=== PATIENT | male | born 2000 | race Two or more races ===

== ENCOUNTER 2021-06-26 04:12 | Emergency (ER) | payer OTHER ==
[~2021-06-26] VITALS: Ht 177.8 cm; Wt 72.0 kg
[2021-06-26 05:06] LABS: APPEARANCE,URINE CLEAR (CLEAR); BILIRUBIN,URINE NEGATIVE (NEGATIVE); GLUCOSE, URINE (UA) NEGATIVE (NEGATIVE); KETONES,URINE NEGATIVE (NEGATIVE); LEUKOCYTE ESTERASE ,URINE MODERATE (NEGATIVE); NITRATE,URINE NEGATIVE (NEGATIVE); OCCULT BLOOD,URINE TRACE (NEGATIVE); PROTEIN,URINE NEGATIVE (NEGATIVE); UROBILINOGEN,URINE 0.2 mg/dL (<=1.0)
[2021-06-26 05:25] LABS: BACTERIA,URINE Few /HPF (None Seen); RBC,URINE 0-2 /HPF (0-2); WBC,URINE 0-2 /HPF (0-5)
[2021-06-26] MEDS ORDERED: DOXYCYCLINE HYCLATE 100 MG TABLET PO ONE (06:15)
[2021-06-26] MEDS ORDERED: CefTRIAXone SODIUM 1 GM/VIAL IM ONE (06:15)
[2021-06-26] MEDS ORDERED: ACETAMINOPHEN 500 MG TABLET PO ONE (06:15)
[2021-06-26] MEDS ORDERED: LIDOCAINE/PF 1% 2 ML VIAL IM ONE (06:15)
[2021-06-26 06:31] VITALS: BP 138/86
== END 2021-06-26 06:45 | disposition home or self-care (01) ==
LOC: EMS 04:14
DX: R36.9 Urethral discharge, unspecified (principal)
CPT/HCPCS: 81001; 87491; 87591; 96372; 99283; J0696; J3490